=== PATIENT | female | born 1980 | race African-American/Black ===

== ENCOUNTER 2017-11-19 10:27 | Emergency (ER) | payer BC | END 2017-11-19 13:00 | disposition home or self-care (01) | LOC: ER 10:27 | DX: S16.1XXA Strain of muscle, fascia and tendon at neck level, initial encounter (principal); S80.01XA Contusion of right knee, initial encounter; Z90.710 Acquired absence of both cervix and uterus; V43.62XA Car passenger injured in collision with other type car in traffic accident, initial encounter; Y93.89 Activity, other specified; Y92.410 Unspecified street and highway as the place of occurrence of the external cause; Y99.8 Other external cause status | CPT/HCPCS: 72125; 72128; 72131; 73564; 99284-25 ==